=== PATIENT | female | born 1990 | race Caucasian/White ===

== ENCOUNTER 2020-02-11 19:06 | Emergency (ER) | payer OTHER ==
--- NOTE | 2020-02-11 20:01 | EDM.PDOC ---
ED HPI GENERAL MEDICAL PROBLEM - General Chief Complaint: General Stated Complaint: ?COVID Time Seen by Provider: 02/11/20 19:45 Source of Information: Reports: Patient, RN, RN Notes Reviewed History Limitations: Reports: No Limitations - History of Present Illness INITIAL COMMENTS - FREE TEXT/NARRATIVE: Patient presents to ER with complaint of sore throat, fever, chills, cough. Patient states she had a on January 21. States she has not noted any redness drainage or swelling from the incisional site. Patient states she had began with a cough on Monday, developed sore throat after the cough, and began with fever and chills today. Patient is concerned that she could have COVID although other than being hospitalized she denies any exposure. Patient states no one else in the home is sick. Patient states she has had some pain in the right breast, but has been able to express milk from it, has used hot shower and massage. No redness, swelling to the right breast. Patient states she was able to pump from the right breast as well. Patient denies sinus pain or nasal drainage/postnasal drip, ear pain. Onset: Gradual Onset Date: 02/07/20 Generalized Pain Score (Numeric/FACES): 8 - Related Data Allergies Allergy/AdvReac Type Severity Reaction Status Date / Time verapamil Allergy Swelling Verified 02/11/20 19:13 Home Meds: Home Meds Ibuprofen 1 tab PO Q8H PRN 02/11/20 [History] Labetalol [Normodyne] 200 mg PO BID 02/11/20 [History] Pnv No.95/Ferrous Fum/Folic AC [ Caplet] 1 each PO DAILY 02/11/20 [History] oxyCODONE 5 mg PO Q4H PRN 02/11/20 [History] Past Medical History Cardiovascular History: Reports: Hypertension Gastrointestinal History: Reports: GERD Neurological History: Reports: Migraines - Past Surgical History HEENT Surgical History: Reports: Tonsillectomy Female Surgical History: Reports: Section Social & Family History - Tobacco Use Smoking Status *Q: Former Smoker Used Tobacco, but Quit: Yes Month/Year Tobacco Last Used: 2014 ED ROS GENERAL - Review of Systems Review Of Systems: Comprehensive ROS is negative, except as noted in HPI. ED EXAM, GENERAL - Physical Exam Exam: See Below Exam Limited By: No Limitations General Appearance: Alert, WD/WN, No Apparent Distress Eye Exam: Bilateral Eye: EOMI, Normal Inspection Ears: Normal External Exam, Normal Canal, Hearing Grossly Normal, Normal TMs Nose: Normal Inspection Throat/Mouth: Normal Inspection, Normal Lips, Normal Teeth, Normal Gums, Normal Oropharynx, Normal Voice, No Airway Compromise Head: Atraumatic, Normocephalic Neck: Normal Inspection, Supple, Non-Tender, Full Range of Motion Respiratory/Chest: No Respiratory Distress, Lungs Clear, Normal Breath Sounds, No Accessory Muscle Use, Chest Non-Tender, Other (Right breast has small hardened area, no redness or excessive swelling.) Cardiovascular: Normal Peripheral Pulses, Regular Rate, Rhythm, No Edema, No Gallop, No JVD, No Murmur, No Rub Peripheral Pulses: 2+: Radial (L), Radial (R) GI/Abdominal: Normal Bowel Sounds, Soft, Non-Tender (Female) Exam: Deferred Rectal (Female) Exam: Deferred Back Exam: Normal Inspection, Full Range of Motion, NT Extremities: Normal Inspection, Normal Range of Motion, Non-Tender, Normal Capillary Refill, No Pedal Edema Neurological: Alert, Oriented, CN II-XII Intact, Normal Cognition, Normal Gait, Normal Reflexes, No Motor/Sensory Deficits Psychiatric: Normal Affect, Normal Mood Skin Exam: Warm, Dry, Normal Color, No Rash, Tattoo(s), Wound/Incision (C section incisional wound is intact, no erythema or drainage noted) Lymphatic: No Adenopathy Course - Vital Signs Last Recorded V/S: Last Vital Signs Temp 102.4 F H 02/11/20 20:04 Pulse 117 H 02/11/20 19:39 Resp 18 02/11/20 19:39 BP 163/107 H 02/11/20 19:39 Pulse Ox 95 02/11/20 19:39 - Orders/Labs/Meds Orders: Active Orders 24 hr Category Date Time Status CULTURE STREP A CONFIRMATION [] Stat Lab 02/11/20 19:55 Results STREP SCRN A RAPID W CULT CONF [] Stat Lab 02/11/20 19:55 Results Labs: Laboratory Tests 02/11/20 Range/Units 19:10 COVID-19 (HORTENSIA) Negative (NEGATIVE) Rapid Strep: Negative Influenza A: Negative Influenza B: Negative Meds: Medications Discontinued Medications Generic Name Dose Route Start Last Admin Trade Name Frantz PRN Reason Stop Dose Admin Acetaminophen 650 mg 02/11/20 19:55 02/11/20 20:04 Tylenol PO 02/11/20 19:56 650 mg NOW ONE Administration Departure - Departure Time of Disposition: 20:34 Disposition: Home, Self-Care 01 Condition: Fair Clinical Impression: Viral illness Fever Qualifiers: Fever type: unspecified Qualified Code(s): R50.9 - Fever, unspecified - Discharge Information *PRESCRIPTION DRUG MONITORING PROGRAM REVIEWED*: No *COPY OF PRESCRIPTION DRUG MONITORING REPORT IN PATIENT DENNIS: No Instructions: Hand Washing, [id number], Viral Respiratory Infection, [id number], Fever, Adult, [id number] Forms: ED Department Discharge Additional Instructions: May use Tylenol and ibuprofen as directed for fever and pain Drink plenty of water Follow-up with your primary care provider if no improvement May try cabbage leaves on the breasts, continue warm showers and massage Sepsis Event Note (ED) - Evaluation Sepsis Screening Result: No Definite Risk - Focused Exam Vital Signs: Vital Signs Temp Temp Pulse Resp BP Pulse Ox 02/11/20 20:04 102.4 F H 02/11/20 19:39 102.4 F H 117 H 18 163/107 H 95 - My Orders Last 24 Hours: My Active Orders 02/11/20 19:55 CULTURE STREP A CONFIRMATION [RM] Stat STREP SCRN A RAPID W CULT CONF [] Stat - Assessment/Plan Last 24 Hours: My Active Orders 02/11/20 19:55 CULTURE STREP A CONFIRMATION [RM] Stat STREP SCRN A RAPID W CULT CONF [] Stat
[2020-02-11] MEDS: Acetaminophen 325 MG Tab PO ONE (20:04)
== END 2020-02-11 20:42 | disposition home or self-care (01) ==
LOC: VM.ED 19:06
DX: O98.53 Other viral diseases complicating the puerperium (principal); B34.9 Viral infection, unspecified; O10.93 Unspecified pre-existing hypertension complicating the puerperium; Z88.8 Allergy status to other drugs, medicaments and biological substances; Z87.891 Personal history of nicotine dependence; Z79.899 Other long term (current) drug therapy; Z20.828 Contact with and (suspected) exposure to other viral communicable diseases
CPT/HCPCS: 87081; 87635; 87804; 87880; 99283; A9270; U0002